=== PATIENT | male | born 1945 | race Caucasian/White ===

== ENCOUNTER 2021-09-15 13:27 | Inpatient (IN) | payer MEDICARE ==
[2021-09-15 13:58] LABS: #Eosinphils 0.3 thou/uL (0.0-0.7); #Lymphocytes 1.7 thou/uL (1.20-3.40); #Monocytes 0.8 thou/uL (0.11-0.59); #Neutrophils 6.2 thou/uL (1.40-6.50); %Basophils 0.3 % (0.0-1.0); %Eosinophils 3.1 % (0.0-10.0); %Lymphocytes 18.7 % (21.0-51.0); %Neutrophils 68.9 % (42.0-75.0); Hemoglobin 16.1 g/dL (14.0-18.0); Mean Corpuscular HGB CONC 33.6 g/dL (32.0-36.0); Mean Corpuscular Hemoglobin 33.2 pg (27.0-31.0); Mean Corpuscular Volume 98.9 fL (78.0-98.0); Mean Platelet Volume 7.7 fL (7.4-10.4); Platelet Count 176 thou/uL (130-400); RBC Distribution Width 12.8 % (11.5-14.5); Red Blood Cell (RBC) Count 4.86 mill/uL (4.70-6.10)
[2021-09-15 14:14] LABS: ALT (SGPT) 22 U/L (8-55); AST (SGOT) 31 U/L (5-34); Albumin 4.7 g/dL (3.4-4.8); Alkaline Phosphatase 86 U/L (40-110); Anion Gap 13 mmol/L (10-20); BUN (Urea Nitrogen) 17 mg/dL (8.4-25.7); Bilirubin, Total 1.1 mg/dL (0.2-1.2); Calc. Creatinine Clearance 0 mL/min (70-130); Calcium 9.5 mg/dL (7.8-10.44); Carbon Dioxide 30 mmol/L (23-31); Chloride 102 mmol/L (98-107); Globulin 2.8 g/dL (2.4-3.5); Glucose 116 mg/dL (83-110); Lipase 60 U/L (8-78); Protein, Total 7.5 g/dL (5.8-8.1); Sodium 141 mmol/L (136-145)
[2021-09-15] MEDS ORDERED: Mag-Al 1200 mg/1200 mg/30 ML UDCUP ONE (14:18)
[2021-09-15] MEDS ORDERED: Lidocaine Viscous Sol 2% 15 ml UD Cup ONE (14:18)
[2021-09-15] MEDS ORDERED: Aspirin Chewable 81 MG TAB ONE (14:18)
[2021-09-15 14:34] LABS: CKMB 2.5 ng/mL (0-6.6)
[2021-09-15] MEDS ORDERED: Nitroglycerin 2% Ointment 1 INCH/1 GM Packet ONE (15:11)
[2021-09-15 16:54] VITALS: BMI 32.2
[2021-09-15] MEDS ORDERED: Ondansetron PF 4 MG/2 ML Vial IVP PRN (16:57)
[2021-09-15] MEDS ORDERED: Senokot S 8.6-50 MG TAB PO PRN (16:57)
[2021-09-15] MEDS ORDERED: Acetaminophen 325 MG TAB PO PRN (16:57)
[2021-09-15] MEDS ORDERED: HYDROcodone/Acetaminophen 7.5/325 mg Tablet PO PRN (16:57)
[2021-09-15] MEDS ORDERED: FLU VACC QS2021-22(65YR UP)/PF 240 MCG/0.7 ML SYRINGE IM ONE (17:30)
[2021-09-15 17:51] LABS: Troponin I 0.299 ng/mL (< 0.028)
[2021-09-15] MEDS ORDERED: Lidocaine 2% Viscous Solution 20 ML, Aluminum & Magnesium Hydroxide 30 ML, Donnatal Eli... SSW SCH (18:00)
[2021-09-15 20:54] LABS: Troponin I 0.551 ng/mL (< 0.028)
[2021-09-15] MEDS: Doxycycline 100 MG CAP PO SCH (21:54)
[2021-09-15] MEDS: Famotidine/PF 20 mg/2ml Vial SLOW IVP SCH (21:54)
[2021-09-15 23:53] LABS: Troponin I 1.101 ng/mL (< 0.028)
[2021-09-16] MEDS ORDERED: Morphine 2 MG/ML VIAL SLOW IVP ONE (00:34)
[2021-09-16] MEDS: Nitroglycerin 0.4 MG TAB (25 Tab Bottle) SL PRN ×3 (00:38→00:50)
[2021-09-16] MEDS ORDERED: Morphine 4 MG/ML VIAL SLOW IVP SCH (00:45)
[2021-09-16] MEDS ORDERED: Enoxaparin Sodium 100 MG/ML SYRINGE SC SCH (01:30)
[2021-09-16 04:50] LABS: #Eosinphils 0.3 thou/uL (0.0-0.7); #Lymphocytes 1.6 thou/uL (1.20-3.40); #Monocytes 0.6 thou/uL (0.11-0.59); #Neutrophils 4.1 thou/uL (1.40-6.50); %Basophils 0.7 % (0.0-1.0); %Eosinophils 4.2 % (0.0-10.0); %Lymphocytes 23.7 % (21.0-51.0); %Monocytes 9.7 % (0.0-10.0); %Neutrophils 61.8 % (42.0-75.0); Hemoglobin 13.9 g/dL (14.0-18.0); Mean Corpuscular HGB CONC 33.5 g/dL (32.0-36.0); Mean Corpuscular Volume 98.5 fL (78.0-98.0); Mean Platelet Volume 7.4 fL (7.4-10.4); Platelet Count 157 thou/uL (130-400); RBC Distribution Width 12.6 % (11.5-14.5); Red Blood Cell (RBC) Count 4.21 mill/uL (4.70-6.10); White Blood Cell (WBC) Count 6.6 thou/uL (4.8-10.8)
[2021-09-16 05:05] LABS: SARS-CoV-2 NAA Rapid Test Not Detected (NotDetected)
[2021-09-16 05:10] LABS: Anion Gap 12 mmol/L (10-20); BUN (Urea Nitrogen) 15 mg/dL (8.4-25.7); Calc. Creatinine Clearance 116 mL/min (70-130); Calcium 8.9 mg/dL (7.8-10.44); Carbon Dioxide 24 mmol/L (23-31); Cardiac Risk 3.1 (Less than 4.5); Chloride 107 mmol/L (98-107); Cholesterol 121 mg/dl (< 200 Desired); Glucose 110 mg/dL (83-110); HDL Cholesterol 39 mg/dL (>60 Neg Risk); LDL Cholesterol, Calculated 69 mg/dL; Potassium 3.9 mmol/L (3.5-5.1); Sodium 139 mmol/L (136-145); Triglycerides 64 mg/dL (Less than 150)
[2021-09-16] MEDS: Doxycycline 100 MG CAP PO SCH ×2 (08:49→21:00)
[2021-09-16] MEDS: Dextrose 5 % And 0.9 % NaCl 1,000 ML IV SCH ×2 (08:53→19:08)
[2021-09-16] MEDS: Famotidine/PF 20 mg/2ml Vial SLOW IVP SCH ×2 (08:54→20:59)
[2021-09-16] MEDS ORDERED: Aspirin Chewable 81 MG TAB PO SCH (09:00)
[2021-09-16] MEDS ORDERED: Enoxaparin Sodium 40 MG/0.4 ML SYRINGE SC SCH (09:00)
[2021-09-16] MEDS ORDERED: Lidocaine 1% (PF) 30 ML VIAL ONE (09:37)
[2021-09-16] MEDS ORDERED: Fentanyl 100 MCG/2 ML VIAL ONE (10:10)
[2021-09-16] MEDS ORDERED: Midazolam HCl 2 mg/2 ml Vial ONE (10:10)
[2021-09-16] MEDS ORDERED: Nitroglycerin 50 MG/250 ML BOT 250 ML ONE (10:43)
[2021-09-16] MEDS ORDERED: Nitroglycerin 2% Ointment 1 INCH/1 GM Packet ONE (10:43)
[2021-09-16] MEDS ORDERED: Nitroglycerin 0.4 MG TAB (25 Tab Bottle) SL PRN (11:07)
[2021-09-16] MEDS ORDERED: Sodium Chloride 0.9% 200 ML IV PRN (11:07)
[2021-09-16] MEDS ORDERED: Fentanyl 100 MCG/2 ML VIAL SLOW IVP PRN (11:08)
[2021-09-16] MEDS ORDERED: Nitroglycerin 50 MG/250 ML BOT 250 ML IVPB SCH (11:15)
[2021-09-16] MEDS ORDERED: Communication Order-Pharmacy FS ONE (15:47)
[2021-09-16] MEDS ORDERED: Heparin 10,000 UNITS/ 10 ML VIAL SLOW IVP SCH (17:45)
[2021-09-16] MEDS ORDERED: Heparin 1,000 UNITS/ML VIAL SLOW IVP SCH (21:00)
[2021-09-16] MEDS ORDERED: Heparin 25,000 units/D5W 500 ML IVPB SCH (21:00)
[2021-09-16] MEDS ORDERED: Diazepam 5 MG TAB PO PRN (21:00)
[2021-09-17] MEDS: Dextrose 5 % And 0.9 % NaCl 1,000 ML IV SCH ×2 (00:32→09:49)
[2021-09-17 04:24] LABS: #Eosinphils 0.3 thou/uL (0.0-0.7); #Lymphocytes 1.4 thou/uL (1.20-3.40); #Monocytes 0.5 thou/uL (0.11-0.59); #Neutrophils 3.6 thou/uL (1.40-6.50); %Basophils 0.6 % (0.0-1.0); %Eosinophils 5.8 % (0.0-10.0); %Lymphocytes 23.9 % (21.0-51.0); %Monocytes 8.9 % (0.0-10.0); %Neutrophils 60.8 % (42.0-75.0); Hemoglobin 12.8 g/dL (14.0-18.0); Mean Corpuscular Hemoglobin 33.7 pg (27.0-31.0); Mean Corpuscular Volume 99.1 fL (78.0-98.0); Mean Platelet Volume 7.6 fL (7.4-10.4); Platelet Count 148 thou/uL (130-400); RBC Distribution Width 12.7 % (11.5-14.5); Red Blood Cell (RBC) Count 3.79 mill/uL (4.70-6.10); White Blood Cell (WBC) Count 5.9 thou/uL (4.8-10.8)
[2021-09-17 04:42] LABS: Anion Gap 9 mmol/L (10-20); BUN (Urea Nitrogen) 13 mg/dL (8.4-25.7); Calc. Creatinine Clearance 117 mL/min (70-130); Calcium 8.6 mg/dL (7.8-10.44); Carbon Dioxide 27 mmol/L (23-31); Chloride 107 mmol/L (98-107); Glucose 152 mg/dL (83-110); Potassium 3.6 mmol/L (3.5-5.1); Sodium 139 mmol/L (136-145)
[2021-09-17] MEDS ORDERED: Midazolam HCl 5 mg/5 ml Vial ONE (06:25)
[2021-09-17] MEDS ORDERED: Fentanyl 100 MCG/2 ML VIAL ONE ×2 (06:25→10:19)
[2021-09-17] MEDS ORDERED: Vecuronium 10 MG VIAL ONE ×2 (06:26→10:17)
[2021-09-17] MEDS ORDERED: Norepinephrine 4 MG/4 ML VIAL ONE (06:26)
[2021-09-17] MEDS ORDERED: Phenylephrine 10 MG/ML VIAL ONE (06:26)
[2021-09-17] MEDS ORDERED: Aminocaproic Acid 5 GM/20 ML VIAL ONE ×2 (07:16→10:17)
[2021-09-17] MEDS ORDERED: Nitroglycerin 50 MG/250 ML BOT 250 ML ONE (07:17)
[2021-09-17] MEDS ORDERED: CEFAZOLIN 2 GM in Premix Bag 1 BAG IVPB SCH (08:00)
[2021-09-17] MEDS ORDERED: Albumin 5% 500 ML ONE (08:53)
[2021-09-17] MEDS ORDERED: EPINEPHrine 1 MG/ML AMP ONE (08:54)
[2021-09-17] MEDS ORDERED: Bupivacaine PF 0.5% 30 ML VIAL ONE (08:54)
[2021-09-17] MEDS ORDERED: Bupivacaine 0.25% HCL 30 ML VIAL ONE (08:54)
[2021-09-17] MEDS ORDERED: Dexamethasone 4 mg/ml Vial ONE (08:54)
[2021-09-17] MEDS ORDERED: Calcium Chloride 1 GM/10 ML Abboject SYRINGE ONE (10:17)
[2021-09-17] MEDS ORDERED: Papaverine 60 MG/2 ML VIAL ONE (10:17)
[2021-09-17] MEDS ORDERED: Sodium Bicarb 50 MEQ/50 ML Abboject 8.4% SYRINGE ONE (10:17)
[2021-09-17] MEDS ORDERED: Lidocaine 2% PF 100 mg/5 ml Syringe ONE (10:17)
[2021-09-17] MEDS ORDERED: Magnesium Sulfate 1 GM/2 ML VIAL ONE (10:17)
[2021-09-17] MEDS ORDERED: Potassium Chloride 60 MEQ/30 ML VIAL ONE (10:17)
[2021-09-17] MEDS ORDERED: Thrombin 5000 UNITS/5 ML VIAL ONE (10:17)
[2021-09-17] MEDS ORDERED: Heparin 30,000 units/30 ml VIAL ONE (10:17)
[2021-09-17] MEDS ORDERED: Rocuronium Bromide 10 MG/ML (10ML VIAL) ONE (10:17)
[2021-09-17] MEDS ORDERED: ePHEDrine 50 MG/ML VIAL ONE (10:17)
[2021-09-17] MEDS ORDERED: Mannitol 12.5 GM/50 ML ONE (10:17)
[2021-09-17] MEDS ORDERED: Protamine Sulfate 250 MG/25 ML VIAL ONE (10:17)
[2021-09-17] MEDS ORDERED: Cardioplegic Soln 1,000 ML BAG ONE (10:17)
[2021-09-17] MEDS ORDERED: PROPOFOL 200 MG/20 ML VIAL ONE (10:17)
[2021-09-17] MEDS ORDERED: Esmolol 100 MG/10 ML VIAL ONE (10:17)
[2021-09-17] MEDS ORDERED: Heparin 5,000 UNITS/ML VIAL ONE (10:17)
[2021-09-17] MEDS ORDERED: Lidocaine 1% PF 5 ML VIAL ONE (10:17)
[2021-09-17] MEDS ORDERED: Fentanyl 100 MCG/2 ML VIAL SLOW IVP PRN ×2 (14:34)
[2021-09-17] MEDS ORDERED: niCARdipine 25 MG in Sodium Chloride 0.9% 250 ML 250 ML IVPB PRN (14:34)
[2021-09-17] MEDS ORDERED: Bisacodyl 5 MG TAB PO PRN (14:34)
[2021-09-17] MEDS ORDERED: Post-Op Insulin Drip Protocol IVPB ONE (14:34)
[2021-09-17] MEDS ORDERED: Magnesium 2 GM/50 ML 2 GM in Premix Bag 1 BAG IVPB SCH (14:34)
[2021-09-17] MEDS ORDERED: Bisacodyl 10 MG SUPP PR PRN (14:34)
[2021-09-17] MEDS ORDERED: Guaifenesin DM 100-10/5 ML UDCUP PO PRN (14:34)
[2021-09-17] MEDS ORDERED: Promethazine HCl 25 MG/ML VIAL IM PRN (14:34)
[2021-09-17] MEDS ORDERED: Mag-Al 1200 mg/1200 mg/30 ML UDCUP PO PRN (14:34)
[2021-09-17] MEDS ORDERED: Ondansetron PF 4 MG/2 ML Vial IVP PRN (14:34)
[2021-09-17] MEDS ORDERED: Morphine 2 MG/ML VIAL SLOW IVP PRN (14:34)
[2021-09-17] MEDS ORDERED: Hetastarch 6% 500 ML 500 ML IVPB PRN (14:34)
[2021-09-17] MEDS ORDERED: D5 1/2 NS w/20 mEq KCL 1,000 ML IV SCH (14:34)
[2021-09-17] MEDS ORDERED: traMADol HCl 50 MG TAB PO PRN (14:34)
[2021-09-17] MEDS ORDERED: Phenylephrine 40 MG in Sodium Chloride 0.9% 250 ML 250 ML IVPB PRN (14:34)
[2021-09-17] MEDS ORDERED: Nitroglycerin 50 MG/250 ML BOT 250 ML IVPB PRN (14:34)
[2021-09-17 15:03] LABS: Actual Bicarbonate (HCO3a) 22.2 mEq/L (22-28); Base Excess (BEa) -3.1 mEq/L (-2.0 to +3.0); CO2 Tension 40.6 mmHg (35.0-45.0); Calcium, Ionized (arterial) 1.09 mmol/L (1.12-1.30); Carboxyhemoglobin (COHb) 0.1 gm% (0.0-3.0); Hemoglobin (Hb) 11.5 g/dL (14.0-18.0); O2 Tension (PaO2), arterial 128.7 mmHg (> 70.0); Potassium - ABG Lab 3.65 mmol/L (3.70-5.30); pH, Arterial 7.36 (7.35-7.45)
[2021-09-17 15:06] LABS: Puncture Site Arterial Line
[2021-09-17 15:07] LABS: #Eosinphils 0.2 thou/uL (0.0-0.7); #Lymphocytes 1.1 thou/uL (1.20-3.40); #Monocytes 0.7 thou/uL (0.11-0.59); #Neutrophils 9.5 thou/uL (1.40-6.50); %Basophils 0.1 % (0.0-1.0); %Eosinophils 1.5 % (0.0-10.0); %Lymphocytes 9.3 % (21.0-51.0); %Monocytes 6.3 % (0.0-10.0); %Neutrophils 82.8 % (42.0-75.0); Hemoglobin 11.4 g/dL (14.0-18.0); Mean Corpuscular HGB CONC 33.4 g/dL (32.0-36.0); Mean Corpuscular Hemoglobin 33.3 pg (27.0-31.0); Mean Corpuscular Volume 99.8 fL (78.0-98.0); Mean Platelet Volume 7.4 fL (7.4-10.4); Platelet Count 107 thou/uL (130-400); RBC Distribution Width 12.7 % (11.5-14.5); Red Blood Cell (RBC) Count 3.42 mill/uL (4.70-6.10); White Blood Cell (WBC) Count 11.4 thou/uL (4.8-10.8)
[2021-09-17 15:14] LABS: INR-International Normal Ratio 1.3
[2021-09-17 15:15] LABS: PTT 35.6 sec (22.9-36.1)
[2021-09-17] MEDS ORDERED: Insulin Regular 300 UNITS/3 ML VIAL SC PRN (15:15)
[2021-09-17] MEDS ORDERED: HUMULIN R 100 UNITS in Sodium Chloride 0.9% 100 ML IVPB SCH (15:15)
[2021-09-17] MEDS ORDERED: Dextrose 5% in Water 1,000 ML IV PRN (15:15)
[2021-09-17] MEDS ORDERED: Dextrose 50% Abboject 50 ML SYRINGE SLOW IVP PRN (15:15)
[2021-09-17 15:16] LABS: Anion Gap 12 mmol/L (10-20); BUN (Urea Nitrogen) 9 mg/dL (8.4-25.7); Calc. Creatinine Clearance 132 mL/min (70-130); Calcium 7.6 mg/dL (7.8-10.44); Carbon Dioxide 23 mmol/L (23-31); Chloride 111 mmol/L (98-107); Glucose 150 mg/dL (83-110); Potassium 3.8 mmol/L (3.5-5.1); Sodium 142 mmol/L (136-145)
[2021-09-17 15:25] LABS: MDiff Complete? YES; Platelet Morphology Comment Appears Decreased; Polychromasia SLIGHT = 2-3 cells (100X) (0-2/hpf)
[2021-09-17] MEDS: Potassium Chloride 20 MEQ/100 ML PREMIX BAG IVPB PRN (16:39)
[2021-09-17] MEDS: Ketorolac Tromethamine 30 MG/ML VIAL IVP SCH (18:03)
[2021-09-17] MEDS: ceFAZolin Sodium/D5W 2 GM in Premix Bag 1 BAG IVPB SCH (18:13)
[2021-09-17 20:30] LABS: Hemoglobin 10.1 g/dL (14.0-18.0)
[2021-09-17 20:46] LABS: Potassium 4.3 mmol/L (3.5-5.1)
[2021-09-17] MEDS ORDERED: Atorvastatin Calcium 20 MG TAB PO SCH (21:00)
[2021-09-17] MEDS ORDERED: Famotidine/PF 20 mg/2ml Vial SLOW IVP SCH (21:00)
[2021-09-18] MEDS: Ketorolac Tromethamine 30 MG/ML VIAL IVP SCH ×5 (00:09→23:59)
[2021-09-18] MEDS: ceFAZolin Sodium/D5W 2 GM in Premix Bag 1 BAG IVPB SCH ×2 (03:07→10:10)
[2021-09-18 04:31] LABS: Anion Gap 8 mmol/L (10-20); BUN (Urea Nitrogen) 12 mg/dL (8.4-25.7); Calc. Creatinine Clearance 115 mL/min (70-130); Calcium 7.7 mg/dL (7.8-10.44); Carbon Dioxide 26 mmol/L (23-31); Chloride 108 mmol/L (98-107); Glucose 130 mg/dL (83-110); Potassium 4.4 mmol/L (3.5-5.1); Sodium 138 mmol/L (136-145)
[2021-09-18] MEDS ORDERED: Dextrose 50% Abboject 50 ML SYRINGE SLOW IVP PRN (06:29)
[2021-09-18] MEDS ORDERED: Dextrose 5% in Water 1,000 ML IV PRN (06:29)
[2021-09-18] MEDS ORDERED: HumaLOG 300 UNITS/3 ML VIAL SC PRN (06:29)
[2021-09-18] MEDS: Fish Oil 1,000 MG CAP PO SCH (07:32)
[2021-09-18] MEDS: Ezetimibe 10 MG TAB PO SCH (07:32)
[2021-09-18] MEDS: traMADol HCl 50 MG TAB PO PRN (07:32)
[2021-09-18] MEDS: Magnesium 2 GM/50 ML 2 GM in Premix Bag 1 BAG IVPB SCH (07:33)
[2021-09-18] MEDS: Aspirin 325 MG TAB PO SCH (07:33)
[2021-09-18] MEDS: Atorvastatin Calcium 40 MG TAB PO SCH (19:53)
[2021-09-19 04:00] LABS: Anion Gap 9 mmol/L (10-20); BUN (Urea Nitrogen) 18 mg/dL (8.4-25.7); Calc. Creatinine Clearance 105 mL/min (70-130); Calcium 7.9 mg/dL (7.8-10.44); Carbon Dioxide 28 mmol/L (23-31); Chloride 104 mmol/L (98-107); Glucose 126 mg/dL (83-110); Potassium 3.8 mmol/L (3.5-5.1); Sodium 137 mmol/L (136-145)
[2021-09-19 04:04] LABS: #Basophils 0.1 thou/uL (0.0-0.2); #Eosinphils 0.3 thou/uL (0.0-0.7); #Lymphocytes 1.2 thou/uL (1.20-3.40); #Monocytes 0.9 thou/uL (0.11-0.59); #Neutrophils 6.2 thou/uL (1.40-6.50); %Basophils 0.6 % (0.0-1.0); %Monocytes 10.3 % (0.0-10.0); %Neutrophils 71.1 % (42.0-75.0); Mean Corpuscular HGB CONC 33.7 g/dL (32.0-36.0); Mean Corpuscular Hemoglobin 33.6 pg (27.0-31.0); Mean Corpuscular Volume 99.9 fL (78.0-98.0); Mean Platelet Volume 7.8 fL (7.4-10.4); Platelet Count 114 thou/uL (130-400); RBC Distribution Width 12.6 % (11.5-14.5); Red Blood Cell (RBC) Count 2.38 mill/uL (4.70-6.10); White Blood Cell (WBC) Count 8.6 thou/uL (4.8-10.8)
[2021-09-19] MEDS: Ketorolac Tromethamine 30 MG/ML VIAL IVP SCH ×4 (06:04→23:24)
[2021-09-19] MEDS: Magnesium 2 GM/50 ML 2 GM in Premix Bag 1 BAG IVPB SCH (07:42)
[2021-09-19] MEDS: Potassium Chloride 20 MEQ/100 ML PREMIX BAG IVPB PRN (07:43)
[2021-09-19] MEDS: Aspirin 325 MG TAB PO SCH (07:43)
[2021-09-19] MEDS: Acetaminophen 325 MG TAB PO PRN (07:43)
[2021-09-19] MEDS: Ezetimibe 10 MG TAB PO SCH (07:44)
[2021-09-19] MEDS: traMADol HCl 50 MG TAB PO PRN (07:44)
[2021-09-19] MEDS: Metoprolol Tartrate 25 MG TAB PO SCH ×2 (07:45→21:09)
[2021-09-19] MEDS: Fish Oil 1,000 MG CAP PO SCH ×2 (07:45→21:10)
[2021-09-19] MEDS ORDERED: Furosemide 40 MG/4 ML VIAL SLOW IVP SCH (17:00)
[2021-09-19] MEDS ORDERED: Mineral Oil ENEMA PR PRN (18:06)
[2021-09-19] MEDS ORDERED: Bisacodyl 5 MG TAB PO PRN (18:06)
[2021-09-19] MEDS ORDERED: Guaifenesin DM 100-10/5 ML UDCUP PO PRN (18:06)
[2021-09-19] MEDS ORDERED: Bisacodyl 10 MG SUPP PR PRN (18:06)
[2021-09-19] MEDS ORDERED: Zolpidem Tartrate 5 MG TAB PO PRN (18:06)
[2021-09-19] MEDS ORDERED: Mag-Al 1200 mg/1200 mg/30 ML UDCUP PO PRN (18:06)
[2021-09-19] MEDS ORDERED: Nitroglycerin 0.4 MG TAB (25 Tab Bottle) SL PRN (18:06)
[2021-09-19] MEDS ORDERED: diphenhydrAMINE 25 MG CAP PO PRN (18:06)
[2021-09-19] MEDS ORDERED: Insulin Regular 300 UNITS/3 ML VIAL SC PRN (18:30)
[2021-09-19] MEDS: Doxycycline 100 MG CAP PO SCH (21:08)
[2021-09-19] MEDS: Atorvastatin Calcium 40 MG TAB PO SCH (21:09)
[2021-09-20] MEDS: Ketorolac Tromethamine 30 MG/ML VIAL IVP SCH ×3 (05:34→17:13)
[2021-09-20 05:39] LABS: #Eosinphils 0.5 thou/uL (0.0-0.7); #Lymphocytes 0.6 thou/uL (1.20-3.40); #Monocytes 0.9 thou/uL (0.11-0.59); #Neutrophils 6.1 thou/uL (1.40-6.50); %Basophils 0.1 % (0.0-1.0); %Eosinophils 6.2 % (0.0-10.0); %Lymphocytes 7.9 % (21.0-51.0); %Monocytes 10.6 % (0.0-10.0); %Neutrophils 75.1 % (42.0-75.0); Hemoglobin 7.9 g/dL (14.0-18.0); Mean Corpuscular HGB CONC 34.5 g/dL (32.0-36.0); Mean Corpuscular Hemoglobin 34.1 pg (27.0-31.0); Mean Platelet Volume 7.7 fL (7.4-10.4); Platelet Count 137 thou/uL (130-400); RBC Distribution Width 12.7 % (11.5-14.5); Red Blood Cell (RBC) Count 2.31 mill/uL (4.70-6.10); White Blood Cell (WBC) Count 8.1 thou/uL (4.8-10.8)
[2021-09-20 05:46] LABS: Hemoglobin A1c 5.2 % (4.0-6.0)
[2021-09-20 06:06] LABS: Anion Gap 11 mmol/L (10-20); BUN (Urea Nitrogen) 21 mg/dL (8.4-25.7); Calc. Creatinine Clearance 123 mL/min (70-130); Carbon Dioxide 25 mmol/L (23-31); Chloride 102 mmol/L (98-107); Glucose 145 mg/dL (83-110); Potassium 3.9 mmol/L (3.5-5.1); Sodium 134 mmol/L (136-145)
[2021-09-20] MEDS: Ezetimibe 10 MG TAB PO SCH (08:15)
[2021-09-20] MEDS: Doxycycline 100 MG CAP PO SCH ×2 (08:15→20:39)
[2021-09-20] MEDS: Aspirin 325 MG TAB PO SCH (08:15)
[2021-09-20] MEDS: Furosemide 40 MG TAB PO SCH ×2 (08:16→14:12)
[2021-09-20] MEDS: Metoprolol Tartrate 25 MG TAB PO SCH ×2 (08:16→20:39)
[2021-09-20] MEDS: Potassium Chloride 10 MEQ TAB PO SCH ×2 (08:16→17:13)
[2021-09-20] MEDS ORDERED: Furosemide 20 MG TAB PO SCH (09:00)
[2021-09-20] MEDS: Acetaminophen 325 MG TAB PO PRN (14:12)
[2021-09-20] MEDS: Atorvastatin Calcium 40 MG TAB PO SCH (20:39)
[2021-09-20] MEDS: Fish Oil 1,000 MG CAP PO SCH (20:40)
[2021-09-21 04:42] LABS: #Eosinphils 0.4 thou/uL (0.0-0.7); #Lymphocytes 0.7 thou/uL (1.20-3.40); %Basophils 0.4 % (0.0-1.0); %Eosinophils 4.8 % (0.0-10.0); %Lymphocytes 7.8 % (21.0-51.0); %Monocytes 11.1 % (0.0-10.0); Hemoglobin 7.9 g/dL (14.0-18.0); Mean Corpuscular HGB CONC 34.6 g/dL (32.0-36.0); Mean Corpuscular Hemoglobin 34.2 pg (27.0-31.0); Mean Platelet Volume 7.2 fL (7.4-10.4); Platelet Count 179 thou/uL (130-400); RBC Distribution Width 12.8 % (11.5-14.5); White Blood Cell (WBC) Count 9.2 thou/uL (4.8-10.8)
[2021-09-21 05:04] LABS: Anion Gap 11 mmol/L (10-20); BUN (Urea Nitrogen) 17 mg/dL (8.4-25.7); Calc. Creatinine Clearance 107 mL/min (70-130); Calcium 8.3 mg/dL (7.8-10.44); Carbon Dioxide 27 mmol/L (23-31); Chloride 103 mmol/L (98-107); Glucose 137 mg/dL (83-110); Potassium 3.8 mmol/L (3.5-5.1); Sodium 137 mmol/L (136-145)
[2021-09-21] MEDS: Doxycycline 100 MG CAP PO SCH (07:25)
[2021-09-21] MEDS: Metoprolol Tartrate 25 MG TAB PO SCH (07:25)
[2021-09-21] MEDS: Furosemide 40 MG TAB PO SCH (07:25)
[2021-09-21] MEDS: Aspirin 325 MG TAB PO SCH (07:25)
[2021-09-21] MEDS: Ezetimibe 10 MG TAB PO SCH (07:25)
[2021-09-21] MEDS: Potassium Chloride 10 MEQ TAB PO SCH (07:25)
[2021-09-21 07:33] VITALS: BP 120/68; TEMP 98.3
== END 2021-09-21 11:30 | disposition home or self-care (01) | DRG 234 ==
LOC: ERS 13:27 → 2NO 14:55 → CCU 09-16 11:09 → 2NO 09-19 17:29 → CCU 09-19 17:34 → 2NO 09-19 17:58
PROVIDERS: ADMIT Hospitalist; ATTEND Hospitalist
PROC: 4A023N7 Measurement of Cardiac Sampling and Pressure, Left Heart, Percutaneous Approach (ICD-10-PCS; principal; 2021-09-16)
PROC: B2111ZZ Fluoroscopy of Multiple Coronary Arteries using Low Osmolar Contrast (ICD-10-PCS; 2021-09-16)
PROC: B2151ZZ Fluoroscopy of Left Heart using Low Osmolar Contrast (ICD-10-PCS; 2021-09-16)
PROC: 02100Z9 Bypass Coronary Artery, One Artery from Left Internal Mammary, Open Approach (ICD-10-PCS; 2021-09-17)
PROC: 0212093 Bypass Coronary Artery, Three Arteries from Coronary Artery with Autologous Venous Tissue, Open Approach (ICD-10-PCS; 2021-09-17)
PROC: 06BQ4ZZ Excision of Left Saphenous Vein, Percutaneous Endoscopic Approach (ICD-10-PCS; 2021-09-17)
PROC: 5A1221Z Performance of Cardiac Output, Continuous (ICD-10-PCS; 2021-09-17)
DX: I21.4 Non-ST elevation (NSTEMI) myocardial infarction (principal); Z20.822 Contact with and (suspected) exposure to COVID-19; K21.9 Gastro-esophageal reflux disease without esophagitis; E11.9 Type 2 diabetes mellitus without complications; F10.20 Alcohol dependence, uncomplicated; E78.00 Pure hypercholesterolemia, unspecified; I11.9 Hypertensive heart disease without heart failure; E78.5 Hyperlipidemia, unspecified; I25.110 Atherosclerotic heart disease of native coronary artery with unstable angina pectoris; Z88.5 Allergy status to narcotic agent; Z88.1 Allergy status to other antibiotic agents; Z91.040 Latex allergy status; Z88.8 Allergy status to other drugs, medicaments and biological substances; Z79.899 Other long term (current) drug therapy
CPT/HCPCS: 36415; 36416; 36430; 71045; 80048; 80053; 80061; 82553; 82805; 83036; 83690; 83880; 84484; 85025; 85610; 85730; 86850; 86900; 86901; 93005; 93010; 93306; 93798; 94002; 94640; J0171; J1100; J1642; J1644; J1650; J1815; J1885; J1940; J2001; J2150; J2250; J2270; J2370; J2405; J2440; J2704; J2720; J3010; J3370; J3475; J3480; J3490; J7042; J7620; P9016; P9045; S0017; S0020; S0028; U0002